=== PATIENT | male | born 1950 | race Caucasian/White ===

== ENCOUNTER → 2022-06-02 09:36 | Outpatient (CLI) | payer MEDICARE, SELFPAY | PROVIDERS: Visit Provider Student in an Organized Health Care Education/Training Program | DX: R30.0 Dysuria (principal) | CPT/HCPCS: 87086 ==

== ENCOUNTER 2022-06-02 20:21 | Emergency (ER) | payer MEDICARE, MEDICAID, SELFPAY ==
[2022-06-02 20:29] VITALS: BP 198/90; PULSE 83; RESP 20; TEMP 36.7; O2SAT 95; BMI 25.1
--- NOTE | 2022-06-02 20:36 | ED.GENADULT ---
HPI - General Adult General Chief complaint: Urogenital-Male Stated complaint: Can't urinate Time Seen by Provider: 06/02/22 20:33 Source: patient Mode of arrival: Ambulatory History of Present Illness HPI narrative: 72-year-old male who is here for evaluation of inability to urinate. He states that his symptoms really started a couple days ago. He went and bought [id number] urinary tract infection medicines and also prostate medication. He started taking this and he thought that maybe his symptoms started to improve however over the past 24 hours he has had decreased urine output. He does have lower abdominal tenderness. Has never had any issues with prostate or urinary tract infections in the past. No vomiting. Related Data Home Medications Medication Instructions Recorded Confirmed losartan 50 mg tablet 50 mg PO DAILY 06/02/22 06/02/22 Previous Rx's Medication Instructions Recorded ALBUTEROL (PROVENTIL INHALER) 0.09 mg IH SEE INSTRUCTIONS #1 inh 12/27/12 tamsulosin 0.4 mg capsule (Flomax) 0.4 mg PO DAILY #30 caps 06/02/22 Allergies Allergy/AdvReac Type Severity Reaction Status Date / Time No Known Drug Allergies Allergy Verified 06/02/22 20:29 Review of Systems Constitutional Constitutional: Reports system reviewed and no additional complaints, except as documented Gastrointestinal Gastrointestinal: Reports system reviewed and no additional complaints, except as documented Genitourinary Genitourinary: Reports system reviewed and no additional complaints, except as documented Hematologic/Lymphatic On Anticoagulants: No Patient History Medical History Hypertension Social History Smoking Status: Current some day smoker Smoking Status: Current some day smoker alcohol intake frequency: holidays/special occasions only Substance Use Type: marijuana Exam Initial Vital Signs Initial Vital Signs: Vital Signs Temperature 98.1 F 06/02/22 20:29 Pulse Rate 83 06/02/22 20:29 Respiratory Rate 20 06/02/22 20:29 Blood Pressure 198/90 H 06/02/22 20:29 Pulse Oximetry 95 06/02/22 20:29 Oxygen Delivery Method 06/02/22 20:29 Const General: cooperative and comfortable HENMT Head: normal to inspection and normocephalic GI Inspection: non-distended Palpation: mass (Lower abdomen) and tender (Lower abdomen) External: normal external exam Skin General: no rashes or lesions noted Neuro General: patient alert, patient awake and moves all extremities Extrem General: capillary refill normal Psych Appearance: grossly normal and well kempt Course Orders Ordered: ED Orders 06/02/22 21:50 Urinalysis and Microscopic Stat Urine Culture Stat Discontinued Medications Lidocaine HCl (Lidocaine 2% (Glydo) 6 Ml Gel) 6 ml TOP NOW ONE Stop: 06/02/22 20:37 Last Admin: 06/02/22 20:39 Dose: 6 ml Documented By: LYDIA Tamsulosin HCl (Tamsulosin 0.4 Mg Capsule) 0.4 mg PO NOW ONE Stop: 06/02/22 22:31 Last Admin: 06/02/22 22:39 Dose: 0.4 mg Documented By: BERNADETTE Vital Signs Vital signs: Vital Signs - 8 hr 06/02/22 22:48 06/02/22 22:48 Pulse Rate 70 Blood Pressure 172/80 H Pulse Oximetry 95 Oxygen Delivery Method Room Air Medical Decision Making Lab Data Labs: Lab Results 06/02/22 Range/Units 21:50 Urine Color Red Urine Appearance Cloudy Urine pH 5.5 (4.5-8.0) Ur Specific [place] 1.015 (1.000-1.035) Urine Protein 3+ H (Negative) Urine Glucose (UA) Negative (Negative) g/dL Urine Ketones Negative (NEGATIVE) Urine Occult Blood 3+ H (Negative) Urine Nitrate Negative (Negative) Urine Bilirubin Negative (NEGATIVE) Urine Urobilinogen 0.2 (0.2) E.U./dL Ur Leukocyte Esterase Trace H (NEGATIVE) Urine RBC >100/hpf H (0-5/HPF) Urine WBC 5-10/hpf H (0-5/HPF) Urine Bacteria None seen (None) Ur Culture Indicated? Specimen cultured MDM Narrative Medical decision making narrative: Valera catheter was placed with return of greater than 1 L of urine. Urine culture was obtained and we will wait for the results before starting any antibiotics. Will start the patient on tamsulosin. Discussed options to include removing the Valera catheter or leaving the catheter in place. He opted to leave a catheter placed. He was given follow-up for Urology. He is not from this area. If you can not get in to see the urologist he was told that he could return to the emergency department approximately 1 week to have the catheter removed. Discharge Plan Departure Patient Disposition: Home Clinical Impression: Acute urinary retention Instructions: How to Care for Your Valera Catheter -- Male, DI for Urinary Retention in Men Activity Restrictions/Additional Instructions: A prescription for a prostate medicine was sent to [email or web address]. Please start taking it as directed. I recommend the tomorrow you contact the Urology Clinic here at the hospital for a follow-up. Be sure you are staying hydrated. Return to the emergency department for any new or worsening symptoms like we discussed. Prescriptions: New tamsulosin [Flomax] 0.4 mg capsule 0.4 mg PO DAILY Qty: 30 0RF No Action losartan 50 mg tablet 50 mg PO DAILY ALBUTEROL (PROVENTIL INHALER) 0.09 mg IH SEE INSTRUCTIONS Qty: 1 2RF Referrals: Dee Rojas MD [Physician] - Miscellaneous,MD Cole [Primary Care Provider] - Visit Report Forms: Patient Portal/API
[2022-06-02] MEDS: LIDOCAINE 2% (GLYDO) 6 ML GEL TOP (20:39)
[2022-06-02 22:04] LABS: Appearance Urine UA CLOUDY; Bilirubin Urine UA NEGATIVE (NEGATIVE); Color Urine UA RED; Glucose Urine UA NEGATIVE (Negative); Ketones Urine UA NEGATIVE (NEGATIVE); Leukocyte Esterase Urine UA TRACE (NEGATIVE); Nitrite Urine UA NEGATIVE (Negative); Occult Blood Urine UA 3+ (Negative); Protein Urine UA 3+ (Negative); Specific Gravity Urine UA 1.015 (1.000-1.035); Urobilinogen Urine UA 0.2 E.U./dL (0.2); pH Urine UA 5.5 (4.5-8.0)
[2022-06-02 22:05] LABS: Bacteria Urine None Seen; Culture Indicated Urine Specimen Cultured; RBC Urine >100/HPF (0-5/HPF); WBC Urine 5-10/HPF (0-5/HPF)
[2022-06-02] MEDS: TAMSULOSIN 0.4 MG CAPSULE PO (22:39)
[2022-06-02 22:48] VITALS: BP 172/80; PULSE 70; O2SAT 95
== END 2022-06-02 22:59 | disposition home or self-care (01) ==
PROVIDERS: Emergency Provider Emergency Medicine
DX: R33.8 Other retention of urine (principal); R30.0 Dysuria
CPT/HCPCS: 51798; 81001; 87086; 99283; 99284

== ENCOUNTER 2022-06-06 09:02 | Emergency (ER) | payer MEDICARE, MEDICAID, SELFPAY ==
[2022-06-06 09:08] VITALS: BP 201/95; PULSE 70; RESP 14; TEMP 36.8; O2SAT 98; BMI 23.7
[2022-06-06 11:03] LABS: Appearance Urine UA CLEAR; Bilirubin Urine UA NEGATIVE (NEGATIVE); Color Urine UA YELLOW; Glucose Urine UA NEGATIVE (Negative); Ketones Urine UA NEGATIVE (NEGATIVE); Leukocyte Esterase Urine UA TRACE (NEGATIVE); Nitrite Urine UA NEGATIVE (Negative); Occult Blood Urine UA 3+ (Negative); Protein Urine UA 1+ (Negative); Urobilinogen Urine UA 0.2 E.U./dL (0.2); pH Urine UA 5.5 (4.5-8.0)
--- NOTE | 2022-06-06 11:07 | ED_ITS ---
HPI - Male Genitourinary General Chief complaint: Urogenital-Male Stated complaint: discomfort after catheter put in Time Seen by Provider: 06/06/22 10:59 Source: patient Mode of arrival: Ambulatory History of Present Illness HPI Narrative: Patient is a 72-year-old male who presents with catheter problem. He was seen and evaluated here 06/02/2022 for urinary retention. He is having pain at the tip of his penis where his catheter is. No fever or chills. Catheter seems to be working but is just irritated. His no abdominal pain. He is not yet made appointment with her Urology or PCP. Related Data Home Medications Medication Instructions Recorded Confirmed losartan 50 mg tablet 50 mg PO DAILY 06/02/22 06/02/22 Previous Rx's Medication Instructions Recorded ALBUTEROL (PROVENTIL INHALER) 0.09 mg IH SEE INSTRUCTIONS #1 inh 12/27/12 tamsulosin 0.4 mg capsule (Flomax) 0.4 mg PO DAILY #30 caps 06/02/22 Allergies Allergy/AdvReac Type Severity Reaction Status Date / Time No Known Drug Allergies Allergy Verified 06/06/22 09:14 Review of Systems Review of Systems Narrative: GENERAL: Denies chills,fever HEENT: Denies throat pain RESPIRATORY: Denies dyspnea, cough, wheezing CARDIOVASCULAR: Denies chest pain, palpitations GASTROINTESTINAL: Denies nausea, vomiting : See HPI MUSCULOSKELETAL: Denies extremity pain, injury SKIN: No rash, no laceration, no pruritus NEUROLOGIC: Denies weakness, dizziness, headache, numbness 8 point review of systems is negative except for those stated above and HPI Patient History Medical History Hypertension Social History Smoking Status: Current some day smoker Smoking Status: Current some day smoker alcohol intake frequency: holidays/special occasions only Substance Use Type: marijuana Exam Initial Vital Signs Initial Vital Signs: Vital Signs Temperature 98.2 F 06/06/22 09:08 Pulse Rate 70 06/06/22 09:08 Respiratory Rate 14 06/06/22 09:08 Blood Pressure 201/95 H 06/06/22 09:08 Pulse Oximetry 98 06/06/22 09:08 Oxygen Delivery Method 06/06/22 09:08 GENERAL: Alert pleasant 72-year-old male no acute distress CARDIOVASCULAR: peripheral pulses in tact, cap refill <2 sec RESPIRATORY: No respiratory distress, speaks in full sentences without difficulty ABDOMEN: Soft, nontender, no guarding or rebound EXTREMITIES: Normal range of motion, no clubbing or edema. Neurovascularly intact NEUROLOGICAL: Cranial nerves II through XII grossly intact. Normal gait and speech. SKIN: Warm, dry, no petechiae, no rashes or lesions. Course Orders Ordered: ED Orders 06/06/22 10:44 Urinalysis and Microscopic Stat Urine Culture Stat Vital Signs Vital signs: Vital Signs - 8 hr 06/06/22 09:08 Temperature 98.2 F Pulse Rate 70 Respiratory Rate 14 Blood Pressure 201/95 H Pulse Oximetry 98 Oxygen Delivery Method Room Air MDM - Male Genitourinary Lab Data Labs: Lab Results 06/06/22 Range/Units 10:44 Urine Color Yellow Urine Appearance Clear Urine pH 5.5 (4.5-8.0) Ur Specific [place] 1.020 (1.000-1.035) Urine Protein 1+ H (Negative) Urine Glucose (UA) Negative (Negative) g/dL Urine Ketones Negative (NEGATIVE) Urine Occult Blood 3+ H (Negative) Urine Nitrate Negative (Negative) Urine Bilirubin Negative (NEGATIVE) Urine Urobilinogen 0.2 (0.2) E.U./dL Ur Leukocyte Esterase Trace H (NEGATIVE) Urine RBC 30-100/hpf H (0-5/HPF) Urine WBC 1-5/hpf (0-5/HPF) Ur Squamous Epith Cells 0-1 /hpf (0-5/HPF) Urine Bacteria Few (2-10) H (None) Ur Culture Indicated? Specimen cultured Urine Dip Bedside Urine Glucose Negative Bedside Urine Bilirubin - Negative Bedside Urine Ketone - Negative Urine Specific [place] 1.015 Bedside Urine Occult Blood +++ Bedside Urine pH 6.0 Bedside Urine Protein + 30 Bedside Urine Urobilinogen - Negative Bedside Urine Nitrite - Negative Bedside Urine Leukocytes - Negative Esterase MDM Narrative Medical decision making narrative: No sign of UTI. At this time patient has been waiting in the ER for a while. Recommend leaving it in for a few more days I do offer to remove the catheter and a couple days in the emergency department. He is trying to go up to [place] he really does not have any outpatient follow-up. He is already taking Flomax. Discharge Plan Departure Patient Disposition: Home Clinical Impression: Valera catheter problem Instructions: How to Care for Your Valera Catheter -- Male Activity Restrictions/Additional Instructions: *You have been diagnosed with Valera catheter problem *What to do: Return in a few days and we will attempt to take out her Valera catheter. Use loop at the end for comfort. At this time no sign of infection Please take your blood pressure medication your blood pressure was noted to be elevated here *Continue to take medications as directed *Follow up with your primary care provider in 2-3 days or call [phone] *Return to ER if you should have increased pain fever or any new, worsening or concerning symptoms Prescriptions: No Action losartan 50 mg tablet 50 mg PO DAILY ALBUTEROL (PROVENTIL INHALER) 0.09 mg IH SEE INSTRUCTIONS Qty: 1 2RF tamsulosin [Flomax] 0.4 mg capsule 0.4 mg PO DAILY Qty: 30 0RF Referrals: Miscellaneous,Doctor, [Primary Care Provider] - Visit Report Forms: Patient Portal/API
[2022-06-06 11:22] LABS: RBC Urine 30-100/HPF (0-5/HPF); WBC Urine 1-5/HPF (0-5/HPF)
[2022-06-06 11:23] LABS: Bacteria Urine Few (2-10); Culture Indicated Urine Specimen Cultured; Squamous Epithelial Cell Urine 0-1 /HPF (0-5/HPF)
== END 2022-06-06 11:35 | disposition home or self-care (01) ==
PROVIDERS: Emergency Provider Emergency Medicine
DX: T83.9XXA Unspecified complication of genitourinary prosthetic device, implant and graft, initial encounter (principal)
CPT/HCPCS: 81001; 81003; 87077; 87086; 87186; 99281; 99282

== ENCOUNTER 2022-06-09 07:36 | Emergency (ER) | payer MEDICARE, MEDICAID, SELFPAY ==
[2022-06-09] VITALS (8 sets, daily range): BP systolic 131–205; BP diastolic 90–106; PULSE 58–86; RESP 18; TEMP 36.6; O2SAT 94–99; BMI 23.7
--- NOTE | 2022-06-09 08:13 | ED_ITS ---
HPI - General Adult General Chief complaint: Urogenital-Male Stated complaint: to have cath removed Time Seen by Provider: 06/09/22 08:13 History of Present Illness HPI narrative: 72-year-old male nonsmoker with history of hypertension presents with request to remove his Valera catheter. [place] is from out of town was seen and evaluated here about a week ago for inability to urinate and was diagnosed with urinary retention had a Valera catheter placed and was started on Flomax. He feels quite well and denies any headache, blurred vision, runny nose, sore throat or cough. He has no chest pain or shortness of breath and denies abdominal pain, nausea, vomiting or diarrhea. He has attempted to follow-up with urology but they can not see him for 1 month. He is requesting the Valera catheter be removed. He understands this puts him at an increased risk of recurrence and we talked about this at length as he is getting ready to go on a road trip. He understands that we will hold him for a few hours and check for postvoid residual. Related Data Home Medications Medication Instructions Recorded Confirmed losartan 50 mg tablet 50 mg PO DAILY 06/02/22 06/02/22 Previous Rx's Medication Instructions Recorded ALBUTEROL (PROVENTIL INHALER) 0.09 mg IH SEE INSTRUCTIONS #1 inh 12/27/12 tamsulosin 0.4 mg capsule (Flomax) 0.4 mg PO DAILY #30 caps 06/02/22 Allergies Allergy/AdvReac Type Severity Reaction Status Date / Time No Known Drug Allergies Allergy Verified 06/06/22 09:14 Review of Systems Review of Systems Narrative: GENERAL: Denies chills, fatigue, malaise, fever, sweats. HEENT: Denies sinus pain, ear pain, sore throat, difficulty swallowing, dizziness. RESPIRATORY: Denies dyspnea, cough, wheezing, hemoptysis, sputum. CARDIOVASCULAR: Denies chest pain, palpitations, orthopnea, edema, GASTROINTESTINAL: Denies nausea, vomiting, abdominal pain, diarrhea, constipation, melena. : Denies dysuria, frequency, incontinence, hematuria, urinary retention. MUSCULOSKELETAL: denies weakness, joint pain, or bony pain SKIN: Denies rash, skin lesions, or other NEUROLOGIC: Denies weakness, headache, numbness, change in speech, confusion, seizures, incoordination. PSYCHIATRIC: No concerning psychosocial issues. 12 point review of systems is negative except for those stated above Patient History Medical History Hypertension Social History Smoking Status: Current some day smoker Smoking Status: Current some day smoker alcohol intake frequency: holidays/special occasions only Substance Use Type: marijuana Exam Narrative Exam Narrative: GENERAL: [72] year old patient appears stated age. Well-developed patient, in mild distress. HEAD: Atraumatic. Normocephalic. EYES: Pupils equal round and reactive. Extraocular motions intact. No scleral icterus. No injection or drainage. ENT: Nose without bleeding, purulent drainage. Throat without erythema, tonsillar hypertrophy or exudate. Airway patent. NECK: Trachea midline. Non tender CARDIOVASCULAR: Regular rate and rhythm without murmurs, gallops, or rubs. RESPIRATORY: Clear to auscultation. Breath sounds equal bilaterally. No wheezes, rales, or rhonchi. GASTROINTESTINAL: Abdomen soft, non-tender, nondistended. EXTREMITIES: No edema or joint tenderness. BACK: Nontender without deformity or crepitance. No flank tenderness. NEURO: AOx3. SKIN: No rash or erythema of visible areas Initial Vital Signs Initial Vital Signs: Vital Signs Pulse Rate 58 L 06/09/22 08:10 Pulse Oximetry 97 06/09/22 08:10 Course Orders Ordered: Discontinued Medications Lidocaine HCl (Lidocaine 2% (Glydo) 6 Ml Gel) 6 ml TOP NOW ONE Stop: 06/09/22 11:36 Last Admin: 06/09/22 11:55 Dose: 6 ml Documented By: JUAN Lidocaine HCl (Lidocaine 2% (Glydo) 6 Ml Gel) 18 ml TOP NOW ONE Stop: 06/09/22 12:06 Last Admin: 06/09/22 12:11 Dose: 18 ml Documented By: JUAN Medical Decision Making Lab Data Labs: Lab Results 06/09/22 Range/Units 12:04 Urine Color Straw Urine Appearance Clear Urine pH 6.5 (4.5-8.0) Ur Specific [place] <=1.005 (1.000-1.035) Urine Protein Negative (Negative) Urine Glucose (UA) Negative (Negative) g/dL Urine Ketones Negative (NEGATIVE) Urine Occult Blood 1+ H (Negative) Urine Nitrate Negative (Negative) Urine Bilirubin Negative (NEGATIVE) Urine Urobilinogen 0.2 (0.2) E.U./dL Ur Leukocyte Esterase Negative (NEGATIVE) Urine RBC None seen (0-5/HPF) Urine WBC 5-10/hpf H (0-5/HPF) Urine Bacteria Occasional (0-1) (None) Ur Culture Indicated? Specimen cultured Discharge Plan Departure Patient Disposition: Home Clinical Impression: Acute urinary retention Instructions: DI for Urinary Retention in Men Activity Restrictions/Additional Instructions: *You have been diagnosed with [urinary retention ] *What to do: *Please continue to take your regular medications as directed. *Please follow up with your primary care provider in 2-3 days, call for an appointment. Let them know you were seen in the Emergency Department and that we ask that you be seen in follow up. We will electronically transmit a record of today's note if your PCP is in our system *Return to Emergency Department if you should have any new, worsening or concerning symptoms, such as [fever greater than 101 F, shaking chills, worsening pain, persistent vomiting or other bothersome symptoms] Prescriptions: No Action losartan 50 mg tablet 50 mg PO DAILY ALBUTEROL (PROVENTIL INHALER) 0.09 mg IH SEE INSTRUCTIONS Qty: 1 2RF tamsulosin [Flomax] 0.4 mg capsule 0.4 mg PO DAILY Qty: 30 0RF Referrals: Miscellaneous,Doctor, MD [Primary Care Provider] - Visit Report Forms: Patient Portal/API
--- NOTE | 2022-06-09 08:23 | PC.NURSE ---
removed 16 fr 10cc chaves catheter at triage. urine in bag clear yellow 350 cc. pt given water to drink and instructed we will watch for 4-6 hours and needs to be able to urinate and fully empty bladder.
[2022-06-09] MEDS: LIDOCAINE 2% (GLYDO) 6 ML GEL TOP (11:55)
[2022-06-09] MEDS: LIDOCAINE 2% (GLYDO) 6 ML GEL 18 ML TOP (12:11)
[2022-06-09 12:18] LABS: Appearance Urine UA CLEAR; Bilirubin Urine UA NEGATIVE (NEGATIVE); Glucose Urine UA NEGATIVE (Negative); Ketones Urine UA NEGATIVE (NEGATIVE); Leukocyte Esterase Urine UA NEGATIVE (NEGATIVE); Nitrite Urine UA NEGATIVE (Negative); Occult Blood Urine UA 1+ (Negative); Protein Urine UA NEGATIVE (Negative); Specific Gravity Urine UA <=1.005 (1.000-1.035); Urobilinogen Urine UA 0.2 E.U./dL (0.2); pH Urine UA 6.5 (4.5-8.0)
[2022-06-09 12:19] LABS: Color Urine UA Straw
[2022-06-09 12:39] LABS: Bacteria Urine Occasional (0-1); Culture Indicated Urine Specimen Cultured; RBC Urine None Seen (0-5/HPF); WBC Urine 5-10/HPF (0-5/HPF)
== END 2022-06-09 12:18 | disposition home or self-care (01) ==
PROVIDERS: Emergency Provider Emergency Medicine
DX: R33.8 Other retention of urine (principal)
CPT/HCPCS: 51798; 81001; 87077; 87086; 87186; 99283

== ENCOUNTER → 2022-07-07 14:54 | Outpatient (CLI) | payer MEDICARE, MEDICAID, SELFPAY | PROVIDERS: Visit Provider Specialist | DX: R33.9 Retention of urine, unspecified (principal) | CPT/HCPCS: 51702; 87086 ==